=== PATIENT | female | born 1975 | race Asian ===

== ENCOUNTER → 2018-07-02 10:04 | Outpatient (CLI) | payer OTHER, SELFPAY ==
[2018-07-02 12:17] LABS: HCG Quantitative /Beta subunit 56216 mIU/mL
== END ==
PROVIDERS: Visit Provider Physician Assistant
DX: N91.2 Amenorrhea, unspecified (principal); Z34.90 Encounter for supervision of normal pregnancy, unspecified, unspecified trimester
CPT/HCPCS: 36415; 84702

== ENCOUNTER → 2018-07-09 09:22 | Outpatient (CLI) | payer OTHER, SELFPAY | PROVIDERS: Visit Provider Physician Assistant | DX: R30.0 Dysuria (principal) | CPT/HCPCS: 87086 ==

== ENCOUNTER → 2018-07-09 09:41 | Outpatient (CLI) | payer OTHER, SELFPAY ==
--- NOTE | 2018-07-09 12:52 | DI.US.S_ITS ---
PROCEDURE: US OB <= 14 WEEKS FETUS INDICATIONS: abdominal pain OUTSIDE/PRIOR DATING DATA: Last menstrual period (LMP): Unknown. LMP-based estimated date of delivery (SHAHRAM): Unknown. First dating scan (date and location): 07/09/18. Estimated date of delivery (SHAHRAM) from first dating scan: 02/15/19. TECHNIQUE: Real-time scanning was performed of the fetus and maternal pelvic organs, with image documentation. Endovaginal scanning was also performed to better visualize the fetus and maternal ovaries. COMPARISON: None. FINDINGS: Embryo: Single intrauterine with ultrasound gestational age of 8 weeks 3 days corresponding to a crown-rump length of 1.9 cm. heart rate is 171 beats per minute. Measurement variability in dating: +/- 4 weeks by LMP, +/- 7 days by mean sac diameter (use before 6 weeks gestation if crown-rump length not able to be measured), +/- 5 days by crown-rump length (up to 8 weeks 6 days gestation), +/- 7 days by crown-rump length (up to 13 weeks 6 days gestation). Maternal organs: Ovaries demonstrate a right corpus luteal cyst. Limited images through the kidneys demonstrate no hydronephrosis. IMPRESSION: 1. Single live intrauterine at 8 weeks 3 days, corresponding to ultrasound SHAHRAM of 02/15/19. 2. Recommend followup imaging at 20-22 weeks for dates and anatomy. Dictated by: Amrita Nazario M.D. on 07/09/2018 at 14:49 Approved by: Amrita Nazario M.D. on 07/09/2018 at 15:01
== END ==
PROVIDERS: Visit Provider Physician Assistant
DX: O26.891 Other specified pregnancy related conditions, first trimester (principal); R10.9 Unspecified abdominal pain; Z3A.08 8 weeks gestation of pregnancy
CPT/HCPCS: 76801; 76817; 87086

== ENCOUNTER → 2018-07-31 09:44 | Outpatient (CLI) | payer OTHER, SELFPAY ==
[2018-07-31 10:45] LABS: Add Manual Diff / Slide Review NO; Basophils Percent Auto 0.4 % (0-2); Eosinophils Percent Auto 1.1 % (2-4); Hematocrit 38.8 % (36-46); Hemoglobin 13.3 g/dL (12.0-16.0); Lymphocytes Percent Auto 21.1 % (25-40); Mean Corpuscular HGB Conc 34.4 % (30-36); Mean Corpuscular Hemoglobin 29.9 PG (26-34); Mean Corpuscular Volume 86.9 fL (80-100); Monocytes Percent Auto 10.3 % (3-14); Neutrophils Absolute Auto 4800 /uL (3000-5900); Neutrophils Percent Auto 67.1 % (50-75); Platelet Count 203 X10^3/uL (150-400); Red Blood Cell Count 4.47 X10^6/uL (4.0-5.2); Red Cell Distribution Width 12.4 % (11.6-14.8); White Blood Cell Count 7.2 X10^3/uL (4.5-11.0)
[2018-07-31 10:47] LABS: Appearance Urine UA CLEAR; Bilirubin Urine UA NEGATIVE (NEGATIVE); Color Urine UA YELLOW; Glucose Urine UA NEGATIVE (Normal); Ketones Urine UA NEGATIVE (NEGATIVE); Leukocyte Esterase Urine UA TRACE (NEGATIVE); Nitrite Urine UA NEGATIVE (Negative); Occult Blood Urine UA NEGATIVE (Negative); Protein Urine UA NEGATIVE (Negative); Specific Gravity Urine UA 1.015 (1.000-1.035); Urobilinogen Urine UA 0.2 E.U./dL (0.2)
[2018-07-31 11:17] LABS: Amorphous Sediment Urine 1+; Bacteria Urine Many (>30); RBC Urine 0-1/HPF (0-5/HPF); Squamous Epithelial Cell Urine 1-5 /HPF; WBC Urine 1-5/HPF (0-5/HPF)
[2018-07-31 11:38] LABS: Hepatitis B Surface Antigen NEGATIVE s/c (NEGATIVE); Rubella Antibody IgG 62.9 IU/mL (>15)
[2018-07-31 11:54] LABS: HIV 1 and 2 Antibody NEGATIVE (NEGATIVE); Hep C Virus Ab w/Reflex Quant NEGATIVE s/c (NEGATIVE)
[2018-08-01 14:01] LABS: HSV 2 IGG AB < 0.90 index (< 0.90)
[2018-08-02 14:32] LABS: RPR Screen Nonreactive (Nonreactive)
== END ==
PROVIDERS: Visit Provider Specialist
DX: Z34.81 Encounter for supervision of other normal pregnancy, first trimester (principal); Z3A.01 Less than 8 weeks gestation of pregnancy
CPT/HCPCS: 36415; 80055; 81003; 81015; 86695; 86696; 86703; 86787; 86803; 86850; 86900; 86901; 87077; 87086; 87147

== ENCOUNTER → 2018-08-29 16:25 | Outpatient (CLI) | payer OTHER, SELFPAY ==
[2018-09-11 08:56] LABS: Informaseq SEE SEPERATE REPORT
== END ==
PROVIDERS: Visit Provider Specialist
DX: O09.529 Supervision of elderly multigravida, unspecified trimester (principal); Z34.82 Encounter for supervision of other normal pregnancy, second trimester
CPT/HCPCS: 36415; 81507

== ENCOUNTER → 2018-08-31 17:17 | Outpatient (CLI) | payer OTHER, SELFPAY ==
[2018-09-06 11:05] LABS: AFP, Serum 39.5 ng/mL; Calc Gestational Age 16.7; Maternal Weight 131 lbs; Number of Fetuses NOT GIVEN; Prev Pregnancies Down Syndrome NOT GIVEN
== END ==
PROVIDERS: Visit Provider Specialist
DX: O09.529 Supervision of elderly multigravida, unspecified trimester (principal); Z34.82 Encounter for supervision of other normal pregnancy, second trimester
CPT/HCPCS: 36415; 82105

== ENCOUNTER → 2018-09-28 07:47 | Outpatient (CLI) | payer OTHER, SELFPAY ==
--- NOTE | 2018-09-28 07:48 | DI.US.S_ITS ---
PROCEDURE: US OB >= 14 WEEKS FETUS INDICATIONS: 20 week anatomical survey OUTSIDE/PRIOR DATING DATA: Last menstrual period (LMP): Unknown. LMP-based estimated date of delivery (SHAHRAM): Unknown. First dating scan (date and location): 07/09/18. Estimated date of delivery (SHAHRAM) from first dating scan: 02/15/19. TECHNIQUE: Real-time scanning was performed of the fetus, with image documentation and biometric measurements. COMPARISON: [facility], , OB <= 14 WEEKS FETUS, 07/31/2018, 9:09. FINDINGS: General: A single living intrauterine gestation is present. Presentation: Breech. Placenta: Placental position is posterior. There is a questionable appearance of marginal previa identified. Amniotic fluid index: 10.1 cm, normal range is 5-24 cm. heart rate: 160 beats per minute. Maternal cervical canal: 5.1 cm long. Normal lower limit is 2.5 cm. Miscellaneous: Lower uterine segment fibroid is present measuring 31 x 26 x 44 mm. biometrics: Biparietal diameter: 4.0 cm 18 weeks zero days Head circumference: 15.8 cm 18 weeks 5 days Abdominal circumference: 12.8 cm 18 weeks 3 days Femur length: 3.0 cm 19 weeks one day Estimated gestational age from initial scan: 20 weeks zero days Composite gestational age from present scan: 18 weeks 4 days Estimated weight and percentile: 255g 4th percentile Measurement variability for biometric dating: +/- 7 days from 14 weeks to 15 weeks 6 days gestation, +/- 10 days from 16 weeks to 21 weeks 6 days gestation, +/- 2 weeks from 22 weeks to 27 weeks 6 days gestation, +/- 3 weeks for 28 weeks gestation or later. weight reference: 4500 g or EFW >90/95% is considered macrosomia or large for gestational age. EFW <10% is small for gestational age. EFW 5% or less is considered intra-uterine growth restriction. Anatomic survey: Neuro: Ventricles are non-dilated at less than 10 mm. Cisterna magna is normal at 3-11 mm. Cerebellum is normal in size and morphology. Nuchal skin fold: Normal at less than 6 mm between 14-21 weeks gestational age. Face: Nose and lips, facial profile are normal. Spine: No evidence for spina bifida. Heart: 4-chambered heart is present, with normal ventricular outflow tracts. Diaphragm: Diaphragm is intact. Stomach: Left-sided stomach is present. Kidneys: No hydronephrosis. Normal is less than 5 mm in 2nd trimester, less than 7 mm in 3rd trimester. Cord: 3-vessel cord has orthotopic insertion. Bladder: Normal in size. Extremities: All 4 extremities identified. IMPRESSION: 1. Single live intrauterine with ultrasound gestational age today is 18 weeks 4 days compared to 20 weeks zero days from initial ultrasound. Ultrasound SHAHRAM is 02/15/19. 2. It is noted estimated weight is in the 4th percentile, highly concerning for intrauterine growth restriction. Close interval clinical and imaging followup is recommended. 3. Lower uterine segment fibroid. 4. Suspected marginal previa as above. Short interval imaging follow up is recommended for evaluation of true previa versus potential contraction. Dictated by: Amrita Nazario M.D. on 09/28/2018 at 11:13 Approved by: Amrita Nazario M.D. on 09/28/2018 at 11:18
== END ==
PROVIDERS: Visit Provider Specialist
DX: O34.12 Maternal care for benign tumor of corpus uteri, second trimester (principal); Z3A.18 18 weeks gestation of pregnancy
CPT/HCPCS: 76811

== ENCOUNTER → 2019-01-17 10:01 | Outpatient (CLI) | payer OTHER, SELFPAY ==
--- NOTE | 2019-01-17 11:16 | PM.OBTRLD ---
Visit Information Visit Information Date of evaluation: 01/17/19 Primary OB Provider: Aletha Cisneros Reason for Evaluation: Yes non-stress test non-stress test reason: other (SGA, a 2 vessel umbilical cord) [facility] Social History Smoking Status: Never smoker Social History Smoking Status: Never smoker Evaluation Evaluation Baseline heart rate: 140 Variability: Moderate (11-25) monitor accelerations: Present monitor decelerations: Absent Category of Tracing: I Diagnosis, Plan/Disposition Final Diagnosis (1) Two vessel umbilical cord in schaeffer , antepartum: Current Visit: Yes Status: Acute Plan/Disposition Plan: Weekly nonstress tests OB Disposition: home
== END ==
LOC: LAB 02-14 10:02 → OB 02-14 10:03
PROVIDERS: PCP Specialist; Visit Provider Specialist
DX: O09.899 Supervision of other high risk pregnancies, unspecified trimester (principal); Z3A.36 36 weeks gestation of pregnancy
CPT/HCPCS: 59025; 87653; G0378

== ENCOUNTER → 2019-01-17 12:14 | Outpatient (REF) | payer OTHER, SELFPAY ==
[2019-01-18 16:05] LABS: Strep Grp B PCR NEG for Grp B Strep
== END ==
LOC: LAB 12:14
PROVIDERS: PCP Specialist; Visit Provider Specialist
DX: Z34.83 Encounter for supervision of other normal pregnancy, third trimester (principal); Z3A.36 36 weeks gestation of pregnancy
CPT/HCPCS: 87653

== ENCOUNTER 2019-01-23 09:27 | Outpatient (CLI) | payer OTHER, SELFPAY ==
--- NOTE | 2019-01-23 10:11 | PM.OBTRLD ---
Visit Information Visit Information Date of evaluation: 01/23/19 Primary OB Provider: Aletha Cisneros Reason for Evaluation: Yes non-stress test non-stress test reason: other (SGA, 2 vessel cord, AMA) [facility] Social History Smoking Status: Never smoker Social History Smoking Status: Never smoker Evaluation Evaluation Baseline heart rate: 130 Variability: Moderate (11-25) monitor accelerations: Present monitor decelerations: Absent Category of Tracing: I Diagnosis, Plan/Disposition Final Diagnosis (1) Two vessel umbilical cord in schaeffer , antepartum: Current Visit: No Status: Acute Plan/Disposition Plan: Continue weekly nonstress tests OB Disposition: home
== END 2019-01-23 10:15 | disposition home or self-care (01) ==
LOC: OB 01-24 10:53
PROVIDERS: PCP Specialist; Visit Provider Specialist
DX: O09.899 Supervision of other high risk pregnancies, unspecified trimester (principal); Z3A.37 37 weeks gestation of pregnancy
CPT/HCPCS: 59025; G0378; G0379

== ENCOUNTER 2019-01-27 19:58 | Outpatient (CLI) | payer OTHER, SELFPAY ==
--- NOTE | 2019-01-27 22:00 | PM.OBTRLD ---
Visit Information Visit Information Date of evaluation: 01/27/19 Primary OB Provider: Aletha Cisnreos On-call OB Provider: Lisandra Babb Reason for Evaluation: Yes non-stress test non-stress test reason: other (rule out ROM) [facility] Medical History (Updated 01/29/19 @ 13:17 by Lisandra Babb DO) Axillary mass (Resolved) Social History Smoking Status: Never smoker Social History Smoking Status: Never smoker Evaluation Evaluation Baseline heart rate: 135 Variability: Moderate (11-25) monitor accelerations: Present monitor decelerations: Absent Category of Tracing: I Cervical dilation (cm): 1 Cervical effacement (%): 75 station: -3 Diagnosis, Plan/Disposition Final Diagnosis (1) 38 weeks gestation of : Current Visit: No Status: Acute Plan/Disposition Plan: 43 year old at 38 weeks of with concerns for spontaneous rupture of membranes. Patient was Amnisure negative. NST reactive. Follow up as scheduled. OB Disposition: home
--- NOTE | 2019-01-29 13:18 | P.TNLD_ITS ---
Visit Information Visit Information Date of evaluation: 01/27/19 Primary OB Provider: Aletha Cisneros On-call OB Provider: Lisandra Babb Reason for Evaluation: Yes non-stress test non-stress test reason: other (rule out ROM) [facility] Medical History (Updated 01/29/19 @ 13:17 by Lisandra Babb DO) Axillary mass (Resolved) Social History Smoking Status: Never smoker Social History Smoking Status: Never smoker Evaluation Evaluation Baseline heart rate: 135 Variability: Moderate (11-25) monitor accelerations: Present monitor decelerations: Absent Category of Tracing: I Cervical dilation (cm): 1 Cervical effacement (%): 75 station: -3 Diagnosis, Plan/Disposition Final Diagnosis (1) 38 weeks gestation of : Current Visit: No Status: Acute Plan/Disposition Plan: 43 year old at 38 weeks of with concerns for spontaneous rupture of membranes. Patient was Amnisure negative. NST reactive. Follow up as scheduled. OB Disposition: home
== END 2019-01-27 21:30 | disposition home or self-care (01) ==
LOC: OB 01-29 06:55
PROVIDERS: PCP Specialist; Visit Provider Family Medicine
DX: O26.893 Other specified pregnancy related conditions, third trimester (principal); Z3A.38 38 weeks gestation of pregnancy
CPT/HCPCS: 59025; 84112; G0378; G0379

== ENCOUNTER 2019-01-28 03:42 | Inpatient (IN) | payer OTHER, SELFPAY ==
--- NOTE | 2019-01-28 05:46 | PM.OBPRVD ---
Delivery date: 01/28/19 Intrapartal events: Extended Bradycardia Cervical ripening method: none Induction method: none Delivery monitor: external FHT and external uterine Route of delivery: Episiotomy description: Midline L&D Laceration Description: Vaginal - 1st Degree Delivery repair: chromic (3-0) Estimated blood loss (mL): 300 Anesthesia type: Local (1% Lidocaine) Narrative: Patient arrived on Labor and delivery in active labor. She progressed quickly to complete and pushing. The heart tones had prolonged deceleration at the end of pushing so decision was made to cut a small episiotomy. The area of the PCI abdomen was injected with 1% lidocaine. The baby delivered spontaneously and was placed on maternal abdomen. After the cord stopped pulsating the cord was clamped cut and cord bloods obtained. The placenta delivered spontaneously, intact, with 2 vessel cord. The patient was found to have first-degree vaginal lacerations at 4 and 6:00 oclock with the 1st degree perineal episiotomy repaired with 3 0 chromic suture. Both infant and mother doing well. Baby 1: Infant gender: Male Presentation: vertex position: Right Occiput Anterior Placenta delivery description: Spontaneous cord vessel description: 2 Vessels score (1 min): 7 score (5 min): 9 Plan for aftercare: Routine post vaginal delivery.
--- NOTE | 2019-01-28 05:58 | PM.OBHP.1 ---
OB HPI Date/Time Date of admission: 01/28/19 Date Patient Seen: 01/28/19 Time Patient Seen: 04:40 History of Present Condition Chief complaint: EVALUATION OF LABOR : 2 Para: 1 Estimated Date of Delivery: 02/10/19 Estimated Gestational Age (weeks): 38 Narrative: Jose Guadalupe Farfan is a 43 year old female admitted in active labor History of Present care: good care, initiated at week # (12), number of visits (10) and pounds weight gain (27) Dating criteria: LMP confirmed by 1st trimester US Ultrasounds: abnormal US findings (2 vessel cord, short femur causing monitoring for SGA) Obstetrical complications: growth restriction (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) Medical complications: none Preadmission Labs Blood type: B (+) positive -: Antibody screen: negative, GBS status: negative, HBsAG: negative, HIV: negative, HSV 1: negative, HSV 2: negative and RPR/VDLR: negative -: Chlamydia screen: not detected and Gonorrhea screen: not detected -: Rubella: immune and Varicella: immune HCAB: negative Cell-free DNA: Normal male Prior (ies) History: 03/21/07 vaginal delivery 6 lb 3 oz Evaluation Evaluation Baseline heart rate: 125 Variability: Moderate (11-25) monitor accelerations: Present monitor decelerations: Variable Contraction Frequency (minutes): 2 Uterine Contraction Intensity: Strong/Firm Category of Tracing: II Cervical dilation (cm): 6 Cervical effacement (%): 100 station: -1 [facility] Medical History (Updated 01/28/19 @ 06:06 by Aletha Cisneros MD) Axillary mass (Resolved) Social History Smoking Status: Never smoker Social History Smoking Status: Never smoker Meds Home Medications Medication Instructions Recorded Confirmed Type polyethylene glycol 3350 17 gram 17 gram PO DAILY #30 each 07/09/18 Rx oral powder packet 1 tab PO DAILY #90 tab 08/02/18 Rx vitamin,calcium,dybamxpf-zjwp-rvcag acid tablet Allergies Allergy/AdvReac Type Severity Reaction Status Date / Time No Known Drug Allergies Allergy Verified 07/31/18 08:51 Review of Systems Review of Systems Patient with regular contractions no leakage of fluid. No signs or symptoms of preeclampsia. All systems reviewed & are unremarkable except as noted in HPI and below Exam Vital Signs (past 8 hours): Blood pressure 121/80, pulse 74 Narrative Exam Narrative: HEENT exam within normal limits. Lungs are clear to auscultation percussion. Heart is regular rate and rhythm no S3-S4 or murmurs. Abdomen is gravid. Extremities without edema and nontender. Assessment and Plan Assessment and Plan Assessment and Plan narrative: 38 week gestation in active labor anticipate vaginal delivery. Time Spent with Patient Total time spent with greater than 50% in coordination of care (as documented) at patient's floor/unit and/or counseling patient:: less than 15 minutes
--- NOTE | 2019-01-28 06:08 | P.HPOB_ITS ---
OB HPI Date/Time Date of admission: 01/28/19 Date Patient Seen: 01/28/19 Time Patient Seen: 04:40 History of Present Condition Chief complaint: EVALUATION OF LABOR : 2 Para: 1 Estimated Date of Delivery: 02/10/19 Estimated Gestational Age (weeks): 38 Narrative: Jose Guadalupe Farfan is a 43 year old female admitted in active labor History of Present care: good care, initiated at week # (12), number of visits (10) and pounds weight gain (27) Dating criteria: LMP confirmed by 1st trimester US Ultrasounds: abnormal US findings (2 vessel cord, short femur causing monitoring for SGA) Obstetrical complications: growth restriction (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) Medical complications: none Preadmission Labs Blood type: B (+) positive -: Antibody screen: negative, GBS status: negative, HBsAG: negative, HIV: negative, HSV 1: negative, HSV 2: negative and RPR/VDLR: negative -: Chlamydia screen: not detected and Gonorrhea screen: not detected -: Rubella: immune and Varicella: immune HCAB: negative Cell-free DNA: Normal male Prior (ies) History: 03/21/07 vaginal delivery 6 lb 3 oz Evaluation Evaluation Baseline heart rate: 125 Variability: Moderate (11-25) monitor accelerations: Present monitor decelerations: Variable Contraction Frequency (minutes): 2 Uterine Contraction Intensity: Strong/Firm Category of Tracing: II Cervical dilation (cm): 6 Cervical effacement (%): 100 station: -1 [facility] Medical History (Updated 01/28/19 @ 06:06 by Aletha Cisneros MD) Axillary mass (Resolved) Social History Smoking Status: Never smoker Social History Smoking Status: Never smoker Meds Home Medications Medication Instructions Recorded Confirmed Type polyethylene glycol 3350 17 gram 17 gram PO DAILY #30 each 07/09/18 Rx oral powder packet 1 tab PO DAILY #90 tab 08/02/18 Rx vitamin,calcium,fodmtylv-dgix-wpthc acid tablet Allergies Allergy/AdvReac Type Severity Reaction Status Date / Time No Known Drug Allergies Allergy Verified 07/31/18 08:51 Review of Systems Review of Systems Patient with regular contractions no leakage of fluid. No signs or symptoms of preeclampsia. All systems reviewed & are unremarkable except as noted in HPI and below Exam Vital Signs (past 8 hours): Blood pressure 121/80, pulse 74 Narrative Exam Narrative: HEENT exam within normal limits. Lungs are clear to auscultation percussion. Heart is regular rate and rhythm no S3-S4 or murmurs. Abdomen is gravid. Extremities without edema and nontender. Assessment and Plan Assessment and Plan Assessment and Plan narrative: 38 week gestation in active labor anticipate vaginal delivery. Time Spent with Patient Total time spent with greater than 50% in coordination of care (as documented) at patient's floor/unit and/or counseling patient:: less than 15 minutes
[2019-01-28 08:21] LABS: Add Manual Diff / Slide Review NO; Basophils Absolute Auto 0 /uL (0-100); Basophils Percent Auto 0.4 % (0-2); Eosinophils Absolute Auto 100 /uL (0-450); Eosinophils Percent Auto 0.5 % (2-4); Hematocrit 42.5 % (36-46); Hemoglobin 14.6 g/dL (12.0-16.0); Lymphocytes Absolute Auto 3300 /uL (1100-4500); Lymphocytes Percent Auto 28.8 % (25-40); Mean Corpuscular HGB Conc 34.3 % (30-36); Mean Corpuscular Hemoglobin 30.4 PG (26-34); Mean Corpuscular Volume 88.6 fL (80-100); Monocytes Absolute Auto 900 /uL (0-900); Monocytes Percent Auto 8.1 % (3-14); Neutrophils Absolute Auto 7200 /uL (1500-7000); Neutrophils Percent Auto 62.2 % (50-75); Platelet Count 205 X10^3/uL (150-400); Red Cell Distribution Width 12.6 % (11.6-14.8); White Blood Cell Count 11.5 X10^3/uL (4.5-11.0)
[2019-01-28 08:31] VITALS: BP 122/70
[2019-01-28] MEDS: IBUPROFEN 600 MG TABLET PO ×2 (09:19→15:09)
[2019-01-28] MEDS: DERMOPLAST SPRAY 20% 60 ML 1 SPRAY TOP (15:08)
[2019-01-29 07:31] LABS: Hematocrit 34.7 % (36-46); Hemoglobin 11.8 g/dL (12.0-16.0)
[2019-01-29] MEDS: IBUPROFEN 600 MG TABLET PO (09:42)
--- NOTE | 2019-01-29 10:01 | PM.DS.1 ---
History of Present Illness Date Patient Seen: 01/29/19 Time Patient Seen: 10:03 Chief complaint: EVALUATION OF LABOR Narrative: 43-year-old admitted in active labor status post spontaneous vaginal delivery. Discharge Providers Date of admission: 01/28/19 03:42 Discharge Date: 01/29/19 Primary care physician: Aletha Cisneros MD Consults: 01/28/19 04:28 Consult to Anesthesiology Urgent Comment: Consulting Provider: Anesthesiologist Reason for consultation: epidural Has provider been notified: No 01/28/19 06:11 Consult to Registered Nursing Professor Routine Comment: Discharge provider: Aletha Cisneros MD Summary Hospital Course: Patient arrived at the hospital in active labor and had a spontaneous vaginal delivery. Patient denies any signs or symptoms of preeclampsia. She is ambulatory and having minimal pain. She is breast-feeding however the baby has hyperbilirubinemia. Exam Narrative Exam Narrative: Patient's blood pressure is 120/76, pulse of 94, temperature 98.6? Patient's abdomen is soft, nontender. Uterus is firm, at U, nontender. Mild lochia. Extremities without edema and nontender. Patient's blood type is B positive she is rubella immune. Objective Labs Result Diagrams: 01/29/19 07:00 Labs: Laboratory Results - last 24 hr 01/29/19 07:00 Hgb 11.8 L Hct 34.7 L Discharge Plan Discharge Plan Patient Disposition: Home Discharge Med Rec/Prescriptions Prescriptions: New ibuprofen 600 mg Tablet 600 mg PO Q6HR PRN (Reason: Pain, Mild (1-3)) Qty: 30 RF: 0 Continued prenat.vits,rojelio,wbd-iaxl-bhgxj tablet 1 tab PO DAILY Qty: 90 RF: 3 Discontinued polyethylene glycol 3350 [Miralax] 17 gram powder in packet 17 gram PO DAILY Qty: 30 RF: 0 Follow up/Referrals: Aletha Cisneros MD [Primary Care Provider] - 1 Month Provider Discharge Instructions Diet: Regular Activity: nothing in vagina for 4 weeks Skin/Wound/Dressing Care Report to your healthcare provider any signs of infection, such as:: chills, fever and increased pain Discharge Data Primary Care Provider: Aletha Cisneros Attending Provider: Aletha Cisneros Admit Date/Time: 01/28/19 03:42
[2019-01-29 11:02] VITALS: BP 122/70; PULSE 76; RESP 18; TEMP 37.1
== END 2019-01-29 12:36 | disposition home or self-care (01) | DRG 807 ==
PROVIDERS: Admitting Provider Specialist; PCP Specialist; Visit Provider Specialist
DX: O76 Abnormality in fetal heart rate and rhythm complicating labor and delivery (principal); Z37.0 Single live birth; Z3A.38 38 weeks gestation of pregnancy; O70.0 First degree perineal laceration during delivery
CPT/HCPCS: 36415; 59050; 59400; 85014; 85018; 85025; 86850; 86900; 86901; G0379

== ENCOUNTER → 2020-02-29 10:50 | Outpatient (CLI) | payer OTHER, SELFPAY ==
[2020-02-29 11:44] LABS: HCG Quantitative /Beta subunit < 2.4 mIU/mL
== END ==
PROVIDERS: PCP Specialist; Referring Provider Specialist; Visit Provider Specialist
DX: N92.6 Irregular menstruation, unspecified (principal)
CPT/HCPCS: 36415; 84702

== ENCOUNTER → 2020-05-30 09:43 | Outpatient (CLI) | payer OTHER, SELFPAY ==
[2020-05-30 10:28] LABS: HCG Quantitative /Beta subunit 430.1 mIU/mL
== END ==
PROVIDERS: PCP Specialist; Referring Provider Physician Assistant; Visit Provider Physician Assistant
DX: N91.2 Amenorrhea, unspecified (principal)
CPT/HCPCS: 36415; 84702

== ENCOUNTER → 2020-06-05 08:21 | Outpatient (CLI) | payer OTHER, SELFPAY ==
[2020-06-05 10:09] LABS: HCG Quantitative /Beta subunit 1499.5 mIU/mL
== END ==
PROVIDERS: Referring Provider Registered Nurse; Visit Provider Registered Nurse
DX: N91.2 Amenorrhea, unspecified (principal)
CPT/HCPCS: 36415; 84702

== ENCOUNTER → 2020-06-22 08:30 | Outpatient (CLI) | payer OTHER, SELFPAY ==
[2020-06-22 09:02] LABS: Add Manual Diff / Slide Review NO; Basophils Absolute Auto 0 /uL (0-100); Basophils Percent Auto 0.4 % (0-2); Eosinophils Absolute Auto 100 /uL (0-450); Eosinophils Percent Auto 2.5 % (2-4); Hematocrit 36.1 % (36-46); Hemoglobin 12.6 g/dL (12.0-16.0); Lymphocytes Absolute Auto 1200 /uL (1100-4500); Lymphocytes Percent Auto 27.4 % (25-40); Mean Corpuscular HGB Conc 34.8 % (30-36); Mean Corpuscular Hemoglobin 29.9 PG (26-34); Mean Corpuscular Volume 85.9 fL (80-100); Monocytes Absolute Auto 400 /uL (0-900); Monocytes Percent Auto 9.6 % (3-14); Neutrophils Absolute Auto 2700 /uL (1500-7000); Neutrophils Percent Auto 60.1 % (50-75); Platelet Count 208 X10^3/uL (150-400); Red Cell Distribution Width 12.1 % (11.6-14.8); White Blood Cell Count 4.6 X10^3/uL (4.5-11.0)
[2020-06-22 09:37] LABS: HCG Quantitative /Beta subunit 4899.4 mIU/mL
[2020-06-22 10:59] LABS: Urine N gonorrhoeae NOT DETECTED
[2020-06-22 11:40] LABS: Urine Chlamydia NOT DETECTED
[2020-06-22 16:51] LABS: HIV 1 & 2 Ab/Ag 4th Gen Combo NEGATIVE (NEGATIVE); Hep C Virus Ab w/Reflex Quant NEGATIVE s/c (NEGATIVE); Rubella Antibody IgG 51.3 IU/mL (>15)
[2020-06-22 16:54] LABS: Hepatitis B Surface Antigen NEGATIVE s/c (NEGATIVE)
[2020-06-23 07:35] LABS: RPR Screen Non Reactive (Non Reactive)
[2020-06-23 10:36] LABS: Varicella IgG Antibody 1031 index (Immune >165)
== END ==
PROVIDERS: PCP Specialist; Referring Provider Specialist; Visit Provider Specialist
DX: O02.0 Blighted ovum and nonhydatidiform mole (principal); Z3A.01 Less than 8 weeks gestation of pregnancy
CPT/HCPCS: 36415; 80055; 84702; 86787; 86803; 86850; 86900; 86901; 87086; 87389; 87491; 87591

== ENCOUNTER → 2021-05-22 09:24 | Outpatient (CLI) | payer OTHER, SELFPAY ==
[2021-05-22 12:03] LABS: Creatinine Urine Random 123.8 mg/dL
[2021-05-22 12:07] LABS: Microalbumi Creatinin Ratio Ur 6.4 ug/mg CR (<30); Microalbumin Urine Random 0.8 mg/dL (0-1.6)
[2021-05-22 13:05] LABS: Add Manual Diff / Slide Review NO; Basophils Absolute Auto 0 /uL (0-100); Basophils Percent Auto 0.8 % (0-2); Eosinophils Absolute Auto 200 /uL (0-450); Eosinophils Percent Auto 3.5 % (2-4); Hematocrit 40.1 % (36-46); Hemoglobin 13.8 g/dL (12.0-16.0); Lymphocytes Absolute Auto 1600 /uL (1100-4500); Lymphocytes Percent Auto 35.3 % (25-40); Mean Corpuscular HGB Conc 34.4 % (30-36); Mean Corpuscular Hemoglobin 30.1 PG (26-34); Mean Corpuscular Volume 87.4 fL (80-100); Monocytes Absolute Auto 400 /uL (0-900); Monocytes Percent Auto 9.1 % (3-14); Neutrophils Absolute Auto 2300 /uL (1500-7000); Neutrophils Percent Auto 51.3 % (50-75); Platelet Count 188 X10^3/uL (150-400); Red Blood Cell Count 4.59 X10^6/uL (4.0-5.2); Red Cell Distribution Width 12.1 % (11.6-14.8); White Blood Cell Count 4.6 X10^3/uL (4.5-11.0)
[2021-05-22 13:46] LABS: Alanine Aminotransferase 29 IU/L (<35); Albumin 4.7 g/dL (3.5-5.0); Albumin Globulin Ratio 1.6 (1.0-2.8); Alkaline Phosphatase 36 U/L (38-126); Aspartate Aminotransferase 30 IU/L (14-36); BUN Creatinine Ratio 23.4 (6-22); Blood Urea Nitrogen 15 mg/dL (7-17); Calcium 9.3 mg/dL (8.4-10.2); Carbon Dioxide 29 mmol/L (22-32); Chloride 101 mmol/L (98-107); Cholesterol 221 mg/dL (140-199); Estimated Glomerular Filt Rate > 60.0 mL/min (>60); Glucose 75 mg/dL (70-100); HDL Cholesterol 47 mg/dL (40-60); HEMOLYSIS < 15 (0-50); LDL Cholesterol Calculated 160 mg/dL (<100); Potassium 3.8 mmol/L (3.4-5.1); Sodium 139 mmol/L (137-145); Total Protein 7.7 g/dL (6.3-8.2); Triglycerides 72 mg/dL (35-150)
[2021-05-22 14:14] LABS: TSH w/ Reflex to FT4 1.02 uIU/mL (0.47-4.68)
== END ==
PROVIDERS: PCP Family Medicine; Referring Provider Family Medicine; Visit Provider Family Medicine
DX: K21.9 Gastro-esophageal reflux disease without esophagitis (principal); R03.0 Elevated blood-pressure reading, without diagnosis of hypertension; Z13.220 Encounter for screening for lipoid disorders
CPT/HCPCS: 36415; 80053; 80061; 82043; 82570; 84443; 85025

== ENCOUNTER 2021-12-02 12:37 | Emergency (ER) | payer OTHER, SELFPAY ==
[2021-12-02 12:42] VITALS: BP 157/77; PULSE 86; RESP 18; TEMP 37.2; O2SAT 99; BMI 18.9
--- NOTE | 2021-12-02 13:23 | ED_ITS ---
HPI - General Adult <RUPA Khan - Last Filed: 12/02/21 14:19> General Chief complaint: Environmental Exposure Stated complaint: Got chemicals in her eyes at work Time Seen by Provider: 12/02/21 12:52 Source: patient Mode of arrival: Ambulatory History of Present Illness HPI narrative: 46-year-old female presents to the emergency department reporting that she got FRM 63 foam tar heat exchanger cleaner in both of her eyes at work at 8:15 a.m. this morning. She states that she irrigated her eyes for 10 minutes, and was sent to the emergency department by HR. Patient does not wear glasses or contacts, she states that both of her eyes are burning mildly now compared to earlier. She denies any vision changes, photosensitivity, blurry vision, or trauma. Patient denies any pre-existing vision problems. Related Data Previous Rx's Medication Instructions Recorded prenat.vits,rojelio,aae-cyvk-eapqj 1 tab PO DAILY #90 tab 06/22/20 hydrochlorothiazide 12.5 mg capsule 12.5 mg PO QAM #90 cap 05/12/21 Allergies Allergy/AdvReac Type Severity Reaction Status Date / Time No Known Drug Allergies Allergy Verified 05/12/21 13:07 Review of Systems <RUPA Khan - Last Filed: 12/02/21 14:19> Review of Systems Narrative: General: denies fever, chills, malaise, sweats, fatigue Head/Neck: denies headache, neck pain, dizziness Eyes: denies visual changes, eye pain, endorses burning from water irrigation, denies photosensitivity Cardio: denies chest pain, palpitations, edema Respiratory: denies dyspnea, cough, orthopnea GI: denies abdominal pain, nausea, vomiting, or diarrhea : denies dysuria, hematuria, urinary retention, frequency or incontinence MSK: denies joint pain, muscle weakness Skin: denies rash, itching, skin lesions or other Neuro: denies numbness, tingling Patient History <RUPA Khan - Last Filed: 12/02/21 14:19> Medical History Acid reflux Axillary mass Elevated blood pressure reading Hypertension Mass of breast, left depression Two vessel umbilical cord in schaeffer , antepartum (~2018) Surgical History History of hemorrhoidectomy (~07/2010) Family History Father Hypertension Arthritis Brother Hypertension Brother Hypertension Brother Dialysis patient Diabetes mellitus Mother Arthritis Smoker Grandmother No problems noted. Grandfather No problems noted. 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 General: Cooperative, comfortable, in no acute distress, well developed and well groomed Head/Neck: Normal visual inspection and supple, atraumatic, Normal facial exam, no evidence of chemical burn Eyes: Pupils equal round and reactive, EOMI, no scleral icterus or injections, fluorescein exam without evidence of corneal abrasion, conjunctiva is normal without injection Nose: External nose normal, nares patent, no rhinorrhea, without purulent drainage Mouth/Throat: uvula midline, moist mucus membranes Initial Vital Signs Initial Vital Signs: Vital Signs Temperature 98.9 F 12/02/21 12:42 Pulse Rate 86 12/02/21 12:42 Respiratory Rate 18 12/02/21 12:42 Blood Pressure 157/77 H 12/02/21 12:42 Pulse Oximetry 99 12/02/21 12:42 <Svitlana Ernandez DO - Last Filed: 12/07/21 07:32> Initial Vital Signs Initial Vital Signs: Vital Signs Temperature 98.9 F 12/02/21 12:42 Pulse Rate 86 12/02/21 12:42 Respiratory Rate 18 12/02/21 12:42 Blood Pressure 157/77 H 12/02/21 12:42 Pulse Oximetry 99 12/02/21 12:42 Course <RUPA Khan - Last Filed: 12/02/21 14:19> Orders Ordered: Discontinued Medications Fluorescein Sodium (Fluorescein 1 Mg Strip) 1 mg EYE-BOTH NOW ONE Stop: 12/02/21 13:28 Last Admin: 12/02/21 13:31 Dose: 1 mg Documented by: JULIET Proparacaine HCl (Proparacaine 0.5% Ophth Nafisa) 1 drops EYE-BOTH NOW ONE Stop: 12/02/21 13:29 Last Admin: 12/02/21 13:31 Dose: 1 drop Documented by: JULIET Consultations Consultation #1: Consulted with poison Control regarding patient's exposure to FRM 63 CB foaming chlorinated detergent to bilateral eyes at 8:15 a.m. this morning. Patient irrigated with water for 10 minutes. Poison Control recommended fluorescein exam to evaluate for corneal abrasion/burn and treatment if necessary. This was completed, there was no corneal abrasion/ulcer/evidence of trauma. Patient was recommended to use artificial tears only without any preservatives. Vital Signs Vital signs: Vital Signs - 8 hr 12/02/21 12:42 Temperature 98.9 F Pulse Rate 86 Respiratory Rate 18 Blood Pressure 157/77 H Pulse Oximetry 99 <Svitlana Ernandez DO - Last Filed: 12/07/21 07:32> Orders Ordered: Discontinued Medications Fluorescein Sodium (Fluorescein 1 Mg Strip) 1 mg EYE-BOTH NOW ONE Stop: 12/02/21 13:28 Last Admin: 12/02/21 13:31 Dose: 1 mg Documented by: JULIET Proparacaine HCl (Proparacaine 0.5% Ophth Nafisa) 1 drops EYE-BOTH NOW ONE Stop: 12/02/21 13:29 Last Admin: 12/02/21 13:31 Dose: 1 drop Documented by: JULIET Vital Signs Vital signs: Vital Signs - 8 hr 12/02/21 12:42 Temperature 98.9 F Pulse Rate 86 Respiratory Rate 18 Blood Pressure 157/77 H Pulse Oximetry 99 Medical Decision Making <RUPA Khan - Last Filed: 12/02/21 14:19> MDM Narrative Medical decision making narrative: 46-year-old female brought to the emergency department complaining of bilateral eye pain and mild burning from a chemical exposure of FRM 63 CD which is a chlorinated foaming cleaning agent at 8:15 a.m. this morning. Patient does not wear contacts or glasses, does not have any vision changes, does not have any evidence of corneal abrasion/burn or ulceration on fluorescein exam. Patient was referred to Ophthalmology per poison control's recommendation, recommend to only instill artificial tears without any preservatives, not for red eyes or allergies. Patient was given this information, instructed to follow-up with ophthalmology and she felt able to return to work. Patient is appropriate and amenable to discharge home. Vital signs are stable on repeat examination is unremarkable. Patient has been informed of results. Patient has been given strict return to ER precautions for any new or worsening symptoms. Patient understands to follow up closely with outpatient providers as instructed. Patient understands plan and agrees to discharge home. All questions and concerns answered at this time. Discharge Plan Departure Patient Disposition: Home Clinical Impression: Chemical injury of left eye, Chemical injury of right eye, Work-related condition Activity Restrictions/Additional Instructions: *You have been diagnosed with a chemical insult to both of your eyes. Please get some artificial tears without preservatives from any drug store like [email or web address]. Please do not by any that are for red eyes for for allergies, only artificial tears. You can use this to help keep your eyes feeling hydrated. Please follow-up with ophthalmology if you continue to have burning sensation in your eyes. I have given a referral below. [id number]. I hope you feel better soon, take Tylenol or ibuprofen if you need pain medicine. *What to do: *Please continue to take your regular medications as directed. [ ] New medication prescriptions sent to your pharmacy: [ ] [ ] New medication written as a paper prescription [ ] No new medications given *Please follow up with your primary care provider in 2-3 days, call for an appointment. Let them know you were seen in the Emergency Department and that we ask that you be seen in follow up. We will electronically transmit a record of today's note if your PCP is in our system *If you do not have a primary care provider please contact the [facility] Resource line at [phone]. They will ask some questions about your medical history and help get you set up with a doctor in the community. *Return to Emergency Department if you should have any new, worsening or concerning symptoms, such as [fever greater than 101F, chills, worsening pain, persistent vomiting or other bothersome symptoms] Prescriptions: No Action prenat.vits,rojelio,knp-zcty-azoka Tablet 1 tab PO DAILY Qty: 90 3RF hydrochlorothiazide 12.5 mg capsule 12.5 mg PO QAM Qty: 90 3RF Referrals: Myesha Harrell MD [Physician] - 3-5 days Russ Redding MD [Primary Care Provider] - <Svitlana Ernandez DO - Last Filed: 12/07/21 07:32> Cosign ED Attending Cosignature Attestation: I was immediately available in the department for consultation. Documentation has been reviewed. I agree with assessment and plan.
[2021-12-02] MEDS: FLUORESCEIN 1 MG STRIP EYE-BOTH (13:31)
[2021-12-02] MEDS: PROPARACAINE 0.5% OPHTH SOL 1 DROPS EYE-BOTH (13:31)
[2021-12-02 14:20] VITALS: BP 137/81; PULSE 66; O2SAT 99
== END 2021-12-02 14:21 | disposition home or self-care (01) ==
PROVIDERS: Emergency Provider Nurse Practitioner Critical Care Medicine; PCP Family Medicine
DX: T65.891A Toxic effect of other specified substances, accidental (unintentional), initial encounter (principal); T26.92XA Corrosion of left eye and adnexa, part unspecified, initial encounter; T26.91XA Corrosion of right eye and adnexa, part unspecified, initial encounter; Y99.0 Civilian activity done for income or pay
CPT/HCPCS: 99282

== ENCOUNTER → 2023-05-05 08:00 | Outpatient (CLI) | payer OTHER, SELFPAY ==
[2023-05-05 08:32] LABS: Add Manual Diff / Slide Review NO; Basophils Absolute Auto 0 /uL (0-100); Basophils Percent Auto 0.6 % (0-2); Eosinophils Absolute Auto 100 /uL (0-450); Eosinophils Percent Auto 2.5 % (2-4); Hematocrit 41.1 % (36-46); Hemoglobin 14.3 g/dL (12.0-16.0); Lymphocytes Absolute Auto 1700 /uL (1100-4500); Lymphocytes Percent Auto 32.9 % (25-40); Mean Corpuscular HGB Conc 34.8 % (30-36); Mean Corpuscular Hemoglobin 30.2 PG (26-34); Mean Corpuscular Volume 86.8 fL (80-100); Monocytes Absolute Auto 500 /uL (0-900); Monocytes Percent Auto 10.4 % (3-14); Neutrophils Absolute Auto 2800 /uL (1500-7000); Neutrophils Percent Auto 53.6 % (50-75); Platelet Count 209 X10^3/uL (150-400); Red Blood Cell Count 4.74 X10^6/uL (4.0-5.2); Red Cell Distribution Width 12.5 % (11.6-14.8); White Blood Cell Count 5.2 X10^3/uL (4.5-11.0)
[2023-05-05 08:48] LABS: Alanine Aminotransferase 33 IU/L (<35); Albumin 4.8 g/dL (3.5-5.0); Albumin Globulin Ratio 1.4 (1.0-2.8); Alkaline Phosphatase 32 U/L (38-126); Aspartate Aminotransferase 30 IU/L (14-36); BUN Creatinine Ratio 18.3 (6-22); Blood Urea Nitrogen 11 mg/dL (7-17); Calcium 9.3 mg/dL (8.4-10.2); Carbon Dioxide 29 mmol/L (22-32); Chloride 101 mmol/L (98-107); Cholesterol 226 mg/dL (140-199); Estimated Glomerular Filt Rate > 60 mL/min (>60); Globulin 3.4 g/dL (1.7-4.1); Glucose 92 mg/dL (70-100); HDL Cholesterol 51 mg/dL (40-60); HEMOLYSIS < 15 (0-50); LDL Cholesterol Calculated 158 mg/dL (<100); Sodium 138 mmol/L (137-145); Total Protein 8.2 g/dL (6.3-8.2); Triglycerides 84 mg/dL (35-150)
[2023-05-05 09:16] LABS: TSH w/ Reflex to FT4 0.75 uIU/mL (0.47-4.68)
[2023-05-05 13:11] LABS: Creatinine Urine Random 100.3 mg/dL
[2023-05-05 13:16] LABS: Microalbumi Creatinin Ratio Ur 6.9 ug/mg CR (<30); Microalbumin Urine Random 0.7 mg/dL (0-1.6)
== END ==
PROVIDERS: PCP Family Medicine; Referring Provider Family Medicine; Visit Provider Family Medicine
DX: E78.5 Hyperlipidemia, unspecified (principal); I10 Essential (primary) hypertension; K21.9 Gastro-esophageal reflux disease without esophagitis
CPT/HCPCS: 36415; 80053; 80061; 82043; 82570; 84443; 85025

== ENCOUNTER → 2023-08-15 13:58 | Outpatient (CLI) | payer OTHER, SELFPAY ==
[2023-08-15 16:29] LABS: Follicle Stimulating Hormone 1.88 mIU/mL
== END ==
PROVIDERS: PCP Family Medicine; Referring Provider Physician Assistant; Visit Provider Physician Assistant
DX: Z30.09 Encounter for other general counseling and advice on contraception (principal)
CPT/HCPCS: 36415; 83001

== ENCOUNTER → 2024-05-02 07:05 | Outpatient (CLI) | payer OTHER, SELFPAY ==
[2024-05-02 07:44] LABS: Add Manual Diff / Slide Review NO; Basophils Absolute Auto 0 /uL (0-100); Basophils Percent Auto 0.7 % (0-2); Eosinophils Absolute Auto 100 /uL (0-450); Eosinophils Percent Auto 1.9 % (2-4); Hematocrit 38.4 % (36-46); Hemoglobin 13.1 g/dL (12.0-16.0); Lymphocytes Absolute Auto 1600 /uL (1100-4500); Lymphocytes Percent Auto 31.4 % (25-40); Mean Corpuscular HGB Conc 34.2 % (30-36); Mean Corpuscular Hemoglobin 29.8 PG (26-34); Mean Corpuscular Volume 87.2 fL (80-100); Monocytes Absolute Auto 400 /uL (0-900); Monocytes Percent Auto 8.4 % (3-14); Neutrophils Absolute Auto 2900 /uL (1500-7000); Neutrophils Percent Auto 57.6 % (50-75); Platelet Count 195 X10^3/uL (150-400); Red Blood Cell Count 4.41 X10^6/uL (4.0-5.2); Red Cell Distribution Width 12.4 % (11.6-14.8)
[2024-05-02 08:15] LABS: Alanine Aminotransferase 28 IU/L (<35); Albumin 4.6 g/dL (3.5-5.0); Albumin Globulin Ratio 1.8 (1.0-2.8); Alkaline Phosphatase 40 U/L (38-126); Aspartate Aminotransferase 25 IU/L (14-36); BUN Creatinine Ratio 14.9 (6-22); Blood Urea Nitrogen 10 mg/dL (7-17); Calcium 9.3 mg/dL (8.4-10.2); Carbon Dioxide 25 mmol/L (22-32); Chloride 106 mmol/L (98-107); Cholesterol 180 mg/dL (140-199); Estimated Glomerular Filt Rate > 60 mL/min (>60); Globulin 2.6 g/dL (1.7-4.1); Glucose 94 mg/dL (70-100); HDL Cholesterol 56 mg/dL (40-60); HEMOLYSIS < 15 (0-50); LDL Cholesterol Calculated 114 mg/dL (<100); Potassium 3.8 mmol/L (3.4-5.1); Sodium 139 mmol/L (137-145); Total Protein 7.2 g/dL (6.3-8.2); Triglycerides 50 mg/dL (35-150)
[2024-05-02 08:39] LABS: TSH w/ Reflex to FT4 1.13 uIU/mL (0.47-4.68)
[2024-05-02 10:03] LABS: Hemoglobin A1C% w Est Avg Glu 5.2 % (4.0-6.0)
[2024-05-02 10:07] LABS: Microalbumin Urine Random 2.1 mg/dL (0-1.6)
[2024-05-04 04:36] LABS: Apolipoprotein B 87 mg/dL (<90)
== END ==
PROVIDERS: PCP Family Medicine; Referring Provider Family Medicine; Visit Provider Family Medicine
DX: E78.2 Mixed hyperlipidemia (principal); I10 Essential (primary) hypertension; K21.9 Gastro-esophageal reflux disease without esophagitis; Z00.00 Encounter for general adult medical examination without abnormal findings
CPT/HCPCS: 36415; 80053; 80061; 82043; 82172; 82570; 83036; 84443; 85025

== ENCOUNTER → 2024-06-20 11:36 | Outpatient (CLI) | payer OTHER, SELFPAY ==
--- NOTE | 2024-06-20 11:36 | DI.MG.S_ITS ---
BILATERAL DIGITAL DIAGNOSTIC MAMMOGRAM 3D/2D: 06/20/2024 CLINICAL: Palpable right breast lump. Comparison is made to exam dated: 03/08/2018 mammogram - [facility]. The breasts are heterogeneously dense, which may obscure small masses (category c / 51-75% glandular tissue). There is a 1.6 cm oval equal density focal asymmetry with an obscured and circumscribed margin in the right breast at 7 o'clock anterior depth. This is seen in additional views and is stable compared to remote prior exam. No other significant masses, calcifications, or other findings are seen in either breast. Mammograms are otherwise stable. IMPRESSION: INCOMPLETE: NEED ADDITIONAL IMAGING EVALUATION Bilateral mammograms are stable. A stable 1.6 cm oval equal density focal asymmetry corresponds to the palpable abnormality in the right breast, and most likely is a fibroadenoma. An ultrasound is recommended to confirm stability . This was performed immediately following this exam. Based on the Tyrer Cuzick model (a risk assessment model) the patient's lifetime risk is 12.5% and her 10 year risk is 2.7%. According to the ACR, ACS, and NCCN guidelines, an annual breast MRI exam along with mammogram is recommended if the patient's lifetime risk is 20% or greater. This exam was interpreted at Station ID: [id number]. NOTE: For mammograms, a report in lay terms will be sent to the patient. Approximately 15% of breast malignancies will not be visualized mammographically. In the management of a palpable breast mass, a negative mammogram must not discourage biopsy of a clinically suspicious lesion. Electronically Signed By: Erna murillo/:06/20/2024 12:42:04 ACR BI-RADS Category 0: Incomplete: Need Additional Imaging Evaluation
--- NOTE | 2024-06-20 11:36 | DI.US.S_ITS ---
LIMITED ULTRASOUND OF RIGHT BREAST AND AXILLA: 06/20/2024 CLINICAL: Patient returns for additional imaging over a suspected mass in the right breast. Comparison is made to exams dated: 06/20/2024 mammogram and 03/08/2018 mammogram - [facility]. Color flow and real-time ultrasound of the right breast 7 o'clock, and axilla regions were performed. Plata scale images of the real-time examination were reviewed. There is a 1.5 cm x 1.4 cm x 1.1 cm oval mass in the right breast at 7 o'clock anterior depth 4 cm from the nipple. This oval mass is hypoechoic with a well-defined boundary and posterior acoustic enhancement. This abnormality has slightly decreased in size and correlates as palpated and with mammography findings. Color flow imaging demonstrates that there is no vascularity present. IMPRESSION: BENIGN The 1.5 cm x 1.4 cm x 1.1 cm mass in the right breast has been stable to smaller since 2018 and is therefore benign. Appearance is most consistent with a fibroadenoma. Return to annual mammogram screening schedule is recommended. Findings and recommendations were conveyed to the patient at time of exam. This exam was interpreted at Station ID: [id number]. Electronically Signed By: Erna murillo/:06/20/2024 13:46:41 letter sent: Normal Exam ACR BI-RADS Category 2: Benign
== END ==
LOC: MAMMO 11:36
PROVIDERS: PCP Family Medicine; Referring Provider Family Medicine; Visit Provider Family Medicine
DX: R92.8 Other abnormal and inconclusive findings on diagnostic imaging of breast (principal); N63.10 Unspecified lump in the right breast, unspecified quadrant; N63.20 Unspecified lump in the left breast, unspecified quadrant
CPT/HCPCS: 76642; 77066; G0279